=== PATIENT | female | born 1945 | race Caucasian/White ===

== ENCOUNTER 2023-04-30 18:31 | Emergency (ER) | payer OTHER ==
[~2023-04-30] VITALS: Ht 157.5 cm; Wt 79.5 kg
[~2023-04-30 18:31] MED LIST: HYDR50TA46 PO; LOSA100T58 PO; METO-411 PO
[2023-04-30 19:41] LABS: BASOPHILS # (AUTO) 0.1 X10'3 (0-0.2); BASOPHILS % (AUTO) 1.4 % (0-1); EOSINOPHILS # (AUTO) 0.2 X10'3 (0-0.9); EOSINOPHILS % (AUTO) 2.5 % (0-6); HEMATOCRIT 37.5 % (35.0-45.0); HEMOGLOBIN 12.6 g/dl (12.0-16.0); LYMPHOCYTES % (AUTO) 22.3 % (21-51); MEAN CORPUSCULAR HEMOGLOBIN 31.6 PG (27.0-31.0); MEAN CORPUSCULAR HGB CONC 33.7 g/dL (33.0-36.5); MEAN CORPUSCULAR VOLUME 93.9 FL (78-98); MEAN PLATELET VOLUME 8.7 FL (7.4-10.4); MONOCYTES # (AUTO) 0.8 X10'3 (0-0.9); MONOCYTES % (AUTO) 9.4 % (2-12); NEUTROPHILS # (AUTO) 5.8 X10'3 (1.8-7.7); NEUTROPHILS % (AUTO) 64.4 % (42-75); PLATELET COUNT 205 X10'3 (140-440); RED CELL DISTRIBUTION WIDTH 13.9 % (11.5-14.5); WHITE BLOOD COUNT 8.9 X10'3 (4.5-11.0)
[2023-04-30] MEDS: normal saline 1000ml 1,000 ML IV ONE ×2 (19:54→21:47)
[2023-04-30] MEDS: ondansetron/PF 4mg/2ml inj IV ONE (19:54)
[2023-04-30 19:57] LABS: ALANINE AMINOTRANSFERASE 24 U/L (12-78); ALBUMIN 3.8 G/DL (3.4-5.0); ALBUMIN/GLOBULIN RATIO 1.2 (1.1-1.5); ALKALINE PHOSPHATASE 78 IU/L (46-116); ANION GAP 7 (8-16); ASPARTATE AMINO TRANSFERASE 16 U/L (10-37); BILIRUBIN,TOTAL 0.3 MG/DL (0.1-1.0); BLOOD UREA NITROGEN 23 MG/DL (7-18); BUN/CREATININE RATIO 19.5 (10.0-20.0); CHLORIDE 105 MMOL/L (99-107); CREATININE 1.18 MG/DL (0.40-0.90); GLUCOSE 124 MG/DL (70-104); POTASSIUM 3.9 MMOL/L (3.5-5.1); SODIUM 143 MMOL/L (135-145); TOTAL CARBON DIOXIDE 31.5 MMOL/L (24-32); TOTAL PROTEIN 7.1 G/DL (6.4-8.2); eCRCL 33 ML/MIN; eGFR 45 ML/MIN
[2023-04-30 19:58] VITALS: RESP 16
[2023-04-30] MEDS: ketorolac trometh. 30mg/ml inj. IV ONE (19:58)
[2023-04-30] MEDS: metoclopramide 5 mg/ml inj IV ONE (19:58)
[2023-04-30 20:05] LABS: LIPASE 21 U/L (16-77); PRO BRAIN NATRIURETIC PEPTIDE 251 PG/ML (0-450)
[2023-04-30] MEDS ORDERED: METO50TA7 PO (20:24)
[2023-04-30] MEDS: cloNIDine 0.1 mg tablet PO ONE (20:40)
[2023-04-30 21:47] VITALS: BP 154/73; PULSE 74; TEMP 98.9; O2SAT 97
== END 2023-05-01 02:25 | disposition home or self-care (01) ==
LOC: ER 18:32
DX: R00.1 Bradycardia, unspecified (principal); R11.2 Nausea with vomiting, unspecified; I10 Essential (primary) hypertension; Z88.0 Allergy status to penicillin; Z79.899 Other long term (current) drug therapy
CPT/HCPCS: 36415; 71045; 80053; 83605; 83690; 83880; 84145; 84484; 85025; 87040; 93005; 96361; 96374; 96375; 99285; J1885; J2405; J2765; J7030